=== PATIENT | male | born 1965 | race Caucasian/White ===

== ENCOUNTER 2017-08-10 11:54 | Emergency (ER) | payer OTHER ==
[~2017-08-10] VITALS: Ht 162.6 cm; Wt 56.7 kg
[2017-08-10] MEDS ORDERED: HYDROCODONE/APAP 10-325 MG TABLET PO ONE (12:30)
--- NOTE | 2017-08-10 12:36 | NUR ---
Patient discharged in stable conditon. Written and verbal after care instructions given to patient. Patient verbalizes understanding of instructions. Patient is ambulatory with steady gait. Refuses offer of [facility] placement. Patient given list of available shelters in surrounding area.
[2017-08-10] MEDS ORDERED: HYDROCODONE/APAP 10-325 MG TABLET ONE (12:50)
== END 2017-08-10 12:38 | disposition home or self-care (01) ==
LOC: ER 11:54
DX: N45.1 Epididymitis (principal); Z59.0 Homelessness; Z88.0 Allergy status to penicillin
CPT/HCPCS: A4663

== ENCOUNTER 2017-11-01 14:59 | Emergency (ER) | payer OTHER ==
[~2017-11-01] VITALS: Ht 162.6 cm; Wt 63.5 kg
[2017-11-01] MEDS ORDERED: IBUPROFEN 800 MG TABLET ONE (15:27)
[2017-11-01] MEDS ORDERED: IBUPROFEN 800 MG TABLET PO ONE (15:30)
[2017-11-01 16:02] LABS: *BILIRUBIN,URIN NEGATIVE (NEGATIVE); *BLOOD, URINE Trace-intact (NEGATIVE); *CLARITY,URINE SLIGHTLY CLOUDY (CLEAR); *COLOR,URINE YELLOW (YELLOW); *KETONES,URINE NEGATIVE (NEGATIVE); *PROTEIN,URINE NEGATIVE (NEGATIVE); *UROBILINOGEN,URINE 0.2 E.U./dl (NORMAL); LEUKOCYTE ESTERASE ,URINE NEGATIVE (NEGATIVE); NITRITE, URINE NEGATIVE (NEGATIVE); PH,URINE 7.5 (5.0-8.0); UGLUCOSE NEGATIVE (NEGATIVE)
[2017-11-01 16:16] LABS: BACTERIA,URINE NONE SEEN /HPF (NONE SEEN); RBC,URINE 0-3 /HPF (0-3); SQUAMOUS EPITHELIAL CELL,UR NONE SEEN /HPF (NONE SEEN); WBC,URINE 0-3 /HPF (0-3)
[2017-11-01] MEDS ORDERED: AZITHROMYCIN 250 MG TABLET PO ONE (16:30)
[2017-11-01] MEDS ORDERED: CEFTRIAXONE 500 MG VIAL IM ONE (16:30)
[2017-11-01] MEDS ORDERED: AZITHROMYCIN 250 MG TABLET ONE (16:31)
[2017-11-01] MEDS ORDERED: CEFTRIAXONE 500 MG VIAL ONE ×2 (16:32→17:00)
[2017-11-01] MEDS ORDERED: LIDOCAINE HCL 2% 20 ML VIAL ONE (16:33)
[2017-11-01] MEDS ORDERED: HYDROCODONE/APAP 5-325MG TABLET PO ONE ×2 (17:00→17:30)
[2017-11-01] MEDS ORDERED: HYDROCODONE/APAP 5-325MG TABLET ONE ×2 (17:02→17:29)
--- NOTE | 2017-11-01 17:40 | NUR ---
PT WAS EVALUATED BY DR MAYS. PT WAS D/C TO HOME. D/C INSTRUCTIONS GIVEN TO THE PT.
[2017-11-01 17:48] VITALS: BP 141/81
[2017-11-05 08:06] LABS: *GC NAA Negative (Negative); *TRIC.VAG. NAA Negative (Negative)
== END 2017-11-01 17:49 | disposition home or self-care (01) ==
LOC: ER 15:05
DX: N45.1 Epididymitis (principal); N43.41 Spermatocele of epididymis, single; Z88.0 Allergy status to penicillin
CPT/HCPCS: 76870; 87491; A4663; J0696; J3490; Q0144

== ENCOUNTER 2020-04-10 03:59 | Emergency (ER) | payer OTHER ==
[~2020-04-10] VITALS: Ht 162.6 cm; Wt 59.0 kg
--- NOTE | 2020-04-10 04:23 | NUR ---
at bedside for assessment
[2020-04-10] MEDS ORDERED: CLINDAMYCIN HCL 150 MG CAPSULE PO ONE (04:30)
[2020-04-10] MEDS ORDERED: NAPROXEN 500 MG TABLET PO ONE (04:30)
[2020-04-10] MEDS ORDERED: CLINDAMYCIN HCL 300 MG CAPSULE ONE (04:34)
[2020-04-10] MEDS ORDERED: NAPROXEN 500 MG TABLET ONE (04:34)
--- NOTE | 2020-04-10 04:39 | NUR ---
red area on right leg marked per MD orders, patient instructed to return to ER if redness spreads past marked area, patient states he understands instructions
[2020-04-10 04:51] VITALS: BP 122/73
--- NOTE | 2020-04-10 04:52 | NUR ---
Patient discharged to home in stable condition. Patient called his own taxi, took all belongings, no signs of acute distress. Written and verbal after care instructions given. Patient verbalizes understanding of instructions. Stressed follow up or return to ER for worsening s/s. Patient given written and verbal discharge instructions. Patient verbalizes understanding of instructions. Patient is ambulatory with steady gait. Refuses offer of [facility] placement. Patient given list of available shelters in surrounding area.
== END 2020-04-10 04:59 | disposition home or self-care (01) ==
LOC: ER 04:03
DX: L03.115 Cellulitis of right lower limb (principal); Z59.0 Homelessness; Z88.0 Allergy status to penicillin
CPT/HCPCS: A4663

== ENCOUNTER 2023-12-04 00:20 | Emergency (ER) | payer OTHER ==
[~2023-12-04] VITALS: Ht 162.6 cm; Wt 65.8 kg
[2023-12-04] MEDS ORDERED: AZITHROMYCIN 250 MG TABLET ONE (00:52)
[2023-12-04] MEDS ORDERED: predniSONE 50 MG TABLET ONE (00:53)
[2023-12-04] MEDS: AZITHROMYCIN 250 MG TABLET PO ONE (01:00)
[2023-12-04] MEDS: predniSONE 50 MG TABLET PO ONE (01:01)
[2023-12-04] MEDS ORDERED: AZIT500T PO (02:14)
[2023-12-04] MEDS ORDERED: PRED50TA PO (02:14)
[2023-12-04 03:21] VITALS: BP 112/61; O2SAT 96
== END 2023-12-04 02:40 | disposition home or self-care (01) ==
LOC: ER 00:26
DX: J18.9 Pneumonia, unspecified organism (principal); Z79.899 Other long term (current) drug therapy; Z88.0 Allergy status to penicillin
CPT/HCPCS: 99283; 71045; J7512; A4606; A4663; Q0144

== ENCOUNTER 2024-05-30 18:45 | Emergency (ER) | payer OTHER ==
[~2024-05-30] VITALS: Ht 162.6 cm; Wt 63.5 kg
[~2024-05-30 18:45] MED LIST: AZIT500T PO; PRED50TA PO
[2024-05-30 19:45] LABS: *BILIRUBIN,URIN NEGATIVE (NEGATIVE); *BLOOD, URINE NEGATIVE (NEGATIVE); *CLARITY,URINE CLEAR (CLEAR); *COLOR,URINE YELLOW (YELLOW); *KETONES,URINE NEGATIVE (NEGATIVE); *PROTEIN,URINE NEGATIVE (NEGATIVE); *UROBILINOGEN,URINE 0.2 E.U./dl (NORMAL); LEUKOCYTE ESTERASE ,URINE NEGATIVE (NEGATIVE); NITRITE, URINE NEGATIVE (NEGATIVE); PH,URINE 5.5 (5.0-8.0); UGLUCOSE NEGATIVE (NEGATIVE)
[2024-05-30] MEDS ORDERED: MAGN100T6 PO (20:12)
[2024-05-30] MEDS ORDERED: DOXY100T2 PO (20:12)
[2024-05-30 20:28] VITALS: BP 120/80; TEMP 98; O2SAT 96
== END 2024-05-30 20:31 | disposition home or self-care (01) ==
LOC: ER 18:46
DX: J06.9 Acute upper respiratory infection, unspecified (principal); R10.30 Lower abdominal pain, unspecified; Z79.52 Long term (current) use of systemic steroids; Z88.0 Allergy status to penicillin
CPT/HCPCS: 71045; 74018; A4606; A4663

== ENCOUNTER 2025-04-12 20:56 | Emergency (ER) | payer OTHER ==
[~2025-04-12] VITALS: Ht 162.6 cm; Wt 68.0 kg
[2025-04-12 20:56] VITALS: BP 122/74
[~2025-04-12 20:56] MED LIST changes: +ALBU8HFA4 INH; +AZIT250T13 PO; +DOXY100T2 PO; +FLUT16SP16 BNOSTRILS; +FLUT1BLS15 INH; +LEVO500T90 PO; +MAGN100T6 PO; +PROM118S5 PO; +PROM5SYR PO
[2025-04-12] MEDS ORDERED: HYDROCODONE/APAP 5-325MG TABLET ONE ×2 (21:57→23:33)
[2025-04-12] MEDS ORDERED: IBUPROFEN 600 MG TABLET ONE (21:57)
[2025-04-12] MEDS: HYDROCODONE/APAP 5-325MG TABLET PO ONE ×2 (21:59→23:42)
[2025-04-12] MEDS: IBUPROFEN 600 MG TABLET PO ONE (21:59)
[2025-04-12 22:14] LABS: *BILIRUBIN,URIN NEGATIVE (NEGATIVE); *BLOOD, URINE NEGATIVE (NEGATIVE); *CLARITY,URINE CLEAR (CLEAR); *COLOR,URINE YELLOW (YELLOW); *KETONES,URINE TRACE (NEGATIVE); *PROTEIN,URINE NEGATIVE (NEGATIVE); *UROBILINOGEN,URINE 0.2 E.U./dl (NORMAL); LEUKOCYTE ESTERASE ,URINE NEGATIVE (NEGATIVE); NITRITE, URINE NEGATIVE (NEGATIVE); UGLUCOSE NEGATIVE (NEGATIVE)
[2025-04-12 22:17] LABS: PLATELET COUNT (AUTO) 330 K/uL (152-348); RED BLOOD CELL COUNT(AUTO) 5.07 MIL/uL (4.06-5.63); RED CELL DISTRIBUTION WIDTH 13.7 % (12.1-16.2); WHITE BLOOD COUNT (AUTO) 7.2 K/uL (3.6-10.2)
[2025-04-12 22:26] LABS: CREATININE 0.7 mg/dL (0.6-1.3); SODIUM SERUM 139.0 mmol/L (136-145); UREA NITROGEN, BLOOD 13.0 mg/dL (7-18)
[2025-04-12 22:32] LABS: ASPARTATE AMINOTRANSFERASE 40.0 U/L (15-37); TOTAL PROTEIN, SERUM 7.5 g/dL (6.4-8.2)
[2025-04-12 22:41] LABS: SQUAMOUS EPITHELIAL CELL,UR NONE SEEN /HPF (NONE SEEN)
[2025-04-13] MEDS ORDERED: CIPR500T5 PO (00:24)
[2025-04-13 00:46] VITALS: BP 122/74; TEMP 98; O2SAT 93
== END 2025-04-13 00:47 | disposition home or self-care (01) ==
LOC: ER 20:56
DX: R10.30 Lower abdominal pain, unspecified (principal); N50.812 Left testicular pain; N50.811 Right testicular pain; N30.90 Cystitis, unspecified without hematuria; Z79.51 Long term (current) use of inhaled steroids; Z79.52 Long term (current) use of systemic steroids; Z88.0 Allergy status to penicillin; Z60.2 Problems related to living alone
CPT/HCPCS: 36415; 76870; 83690; 85025; A4606; A4663